=== PATIENT | female | born 1995 | race Caucasian/White ===

== ENCOUNTER 2018-04-02 12:41 | Outpatient (CLI) | payer MEDICAID ==
[2018-04-02 15:19] LABS: RUPTURE FETAL MEMBRANES NEGATIVE (NEGATIVE)
== END 2018-04-02 15:55 | disposition home or self-care (01) ==
LOC: OBT 12:41 → L-D 12:41 → OBT 15:55
DX: O26.893 Other specified pregnancy related conditions, third trimester (principal); N89.8 Other specified noninflammatory disorders of vagina; Z3A.36 36 weeks gestation of pregnancy
CPT/HCPCS: 76818; 84112

== ENCOUNTER 2018-04-17 14:44 | Inpatient (IN) | payer MEDICAID ==
[2018-04-17] MEDS: LACTATED RINGER'S 1,000 ML IV ×3 (15:26→19:57)
[2018-04-17] MEDS ORDERED: OXYTOCIN 30 UNITS/LR 500 ML IV (15:30)
[2018-04-17] MEDS ORDERED: CARBOPROST 250 MCG INJ IM (15:30)
[2018-04-17] MEDS ORDERED: METHYLERGONOVINE 0.2 MG INJ IM (15:30)
[2018-04-17] MEDS ORDERED: LIDOCAINE 1% (MPF) 30 ML INJ INJ (15:30)
[2018-04-17] MEDS ORDERED: BUTORPHANOL 2 MG INJ IV (15:30)
[2018-04-17] MEDS ORDERED: MISOPROSTOL 200 MCG TAB PR (15:30)
[2018-04-17] MEDS ORDERED: BUTORPHANOL 1 MG INJ IV (15:30)
[2018-04-17 15:35] LABS: ADD MAN DIFF? NO
[2018-04-17 15:38] LABS: WHITE BLOOD COUNT 14.3 10^3/ul (4.8-10.8)
[2018-04-17 15:38] LABS: BASOPHILS % 0.2 % (0.0-2.0); EOSINOPHILS % 0.1 % (0.0-7.0); HEMOGLOBIN 12.4 g/dl (12.0-16.0); LYMPHOCYTES % 6.8 % (15.0-51.0); MEAN CORPUSCULAR HEMOGLOBIN 31.2 pg (29.0-33.0); MEAN CORPUSCULAR HGB CONC 33.5 g/dl (32.0-37.0); MONOCYTE # 0.6 10^3/ul (0.3-0.9); MONOCYTES % 4.3 % (0.0-11.0); NEUTROPHIL # 12.6 10^3/ul (1.6-7.5); NEUTROPHILS % 87.8 % (39.0-77.0); PLATELET COUNT 233 10^3/UL (140-415); RED BLOOD COUNT 3.98 10^6/ul (4.20-5.40); RED CELL DISTRIBUTION WIDTH 13.5 % (11.5-14.5)
[2018-04-17 15:58] LABS: INR 0.85; PROTIME 11.7 Sec (11.9-14.9); PT RATIO 0.9
[2018-04-17] MEDS ORDERED: NALOXONE (0.4 MG/ML) INJ IV (17:00)
[2018-04-17] MEDS ORDERED: DIPHENHYDRAMINE 50 MG INJ IV (17:00)
[2018-04-17] MEDS ORDERED: ONDANSETRON 4 MG INJ IV (17:00)
[2018-04-17] MEDS ORDERED: FENTAnyl 2MCG/ML-ROPIV 0.2% 100 ML BAG EPI (17:00)
[2018-04-17 19:19] LABS: HEPATITIS B SURFACE ANTIGEN NEGATIVE (NEGATIVE)
[2018-04-17] MEDS: OXYTOCIN 30 UNITS/LR 500 ML IV ×2 (21:58→23:30)
[2018-04-18] MEDS ORDERED: NACL 0.9% 3 ML SYG IV (00:30)
[2018-04-18] MEDS ORDERED: HYDROCODONE/APAP (5/325) TAB PO (00:30)
[2018-04-18] MEDS ORDERED: ACETAMINOPHEN 325 MG TAB PO (00:30)
[2018-04-18] MEDS ORDERED: MISOPROSTOL 200 MCG TAB PR (00:30)
[2018-04-18] MEDS ORDERED: CARBOPROST 250 MCG INJ IM (00:30)
[2018-04-18] MEDS ORDERED: OXYTOCIN 30 UNITS/LR 500 ML IV (00:30)
[2018-04-18] MEDS ORDERED: ZOLPIDEM 5 MG TAB PO (00:30)
[2018-04-18] MEDS ORDERED: METHYLERGONOVINE 0.2 MG INJ IM (00:30)
[2018-04-18] MEDS ORDERED: WITCH HAZEL/GLYCERIN PAD PR (00:30)
[2018-04-18] MEDS ORDERED: DIPHENHYDRAMINE 25 MG CAP PO (00:30)
[2018-04-18] MEDS ORDERED: ONDANSETRON 4 MG INJ IV (00:30)
[2018-04-18] MEDS: SENNA/DOCUSATE NA (8.6MG/50MG) TAB PO ×3 (01:44→21:13)
[2018-04-18] MEDS: IBUPROFEN 600 MG TAB PO ×4 (01:45→17:57)
[2018-04-18] MEDS: OXYTOCIN 30 UNITS/LR 500 ML IV (03:40)
[2018-04-18 06:54] LABS: HEMATOCRIT 34.5 % (37.0-47.0); HEMOGLOBIN 11.7 g/dl (12.0-16.0)
[2018-04-18] MEDS: PRENATAL VITAMIN PO (09:06)
[2018-04-18 15:18] LABS: RAPID PLASMA REAGIN NONREACTIVE (NR)
[2018-04-19] MEDS: IBUPROFEN 600 MG TAB PO ×3 (00:15→11:11)
[2018-04-19] MEDS: PRENATAL VITAMIN PO (11:11)
[2018-04-19] MEDS: SENNA/DOCUSATE NA (8.6MG/50MG) TAB PO (11:11)
[2018-04-19] MEDS: MEASLES,MUMPS,RUBELLA VACCINE INJ SC* (16:27)
[2018-04-19] MEDS: DIPHTH/TET/ACEL PERTUSS (ADULT) 0.5 ML VIAL IM* (16:32)
[2018-04-19] MEDS: LANOLIN HPA 1 PKT TOP (16:33)
[2018-04-20] MEDS ORDERED: VARICELLA VACCINE LIVE/PF 1,350 UNIT/0.5 ML ML SC* (09:00)
[2018-04-20] MEDS ORDERED: DIPHTH/TET/ACEL PERTUSS (ADULT) 0.5 ML VIAL IM* (09:00)
== END 2018-04-19 17:20 | disposition home or self-care (01) | DRG 807 ==
LOC: OBT 14:44 → PP1 04-18 00:40 → L-D 14:44 → OBT 15:00 → L-D 15:00
PROVIDERS: Obstetrics & Gynecology
PROC: 10E0XZZ Delivery of Products of Conception, External Approach (ICD-10-PCS; principal; 2018-04-18)
PROC: 0HQ9XZZ Repair Perineum Skin, External Approach (ICD-10-PCS; 2018-04-18)
DX: O70.0 First degree perineal laceration during delivery (principal); Z37.0 Single live birth; Z3A.38 38 weeks gestation of pregnancy; Z23 Encounter for immunization
CPT/HCPCS: 62319; 85014; 85018; 85025; 85610; 85730; 86592; 86850; 86900; 86901; 87340; 90686; 90715; 99464

== ENCOUNTER 2018-04-27 18:24 | Inpatient (IN) | payer MEDICAID ==
[2018-04-27 19:19] LABS: ADD MAN DIFF? NO
[2018-04-27] MEDS: SODIUM CHLORIDE 0.9% 1L BAG IV* (19:20)
[2018-04-27] MEDS: ACETAMINOPHEN 325 MG TAB PO (19:21)
[2018-04-27] MEDS: PIPER-TAZO 3.375 GM IV (PMX) 100 ML IVPB (19:22)
[2018-04-27 19:36] LABS: WHITE BLOOD COUNT 13.5 10^3/ul (4.8-10.8)
[2018-04-27 19:36] LABS: BASOPHIL # 0.1 10^3/ul (0.0-0.1); BASOPHILS % 0.4 % (0.0-2.0); HEMATOCRIT 42.7 % (37.0-47.0); HEMOGLOBIN 14.1 g/dl (12.0-16.0); LYMPHOCYTES # 1.9 10^3/ul (0.8-2.9); LYMPHOCYTES % 14.2 % (15.0-51.0); MEAN CORPUSCULAR HEMOGLOBIN 30.8 pg (29.0-33.0); MEAN CORPUSCULAR VOLUME 93.2 fl (82.0-101.0); MEAN PLATELET VOLUME 9.5 fl (7.4-10.4); MONOCYTE # 0.6 10^3/ul (0.3-0.9); MONOCYTES % 4.8 % (0.0-11.0); NEUTROPHIL # 10.8 10^3/ul (1.6-7.5); NEUTROPHILS % 80.1 % (39.0-77.0); PLATELET COUNT 267 10^3/UL (140-415); RED BLOOD COUNT 4.58 10^6/ul (4.20-5.40); RED CELL DISTRIBUTION WIDTH 13.4 % (11.5-14.5)
[2018-04-27 19:39] LABS: ADD UMIC YES; UR ASCORBIC ACID NEGATIVE (NEGATIVE); UR BACTERIA FEW /HPF (NONE SEEN); UR BILIRUBIN (Dip) NEGATIVE (NEGATIVE); UR BLOOD (Dip) 2+ mg/dL (NEGATIVE); UR CLARITY SLIGHTLY CLOUDY (CLEAR); UR COLOR YELLOW (YELLOW); UR GLUCOSE (Dip) NEGATIVE (NEGATIVE); UR KETONES (Dip) 1+ mg/dL (NEGATIVE); UR LEUKOCYTE ESTERASE (Dip) 3+ Leu/ul (NEGATIVE); UR NITRITE (Dip) NEGATIVE (NEGATIVE); UR RBC 9 /HPF (0-5); UR SPECIFIC GRAVITY (Dip) 1.011 (1.003-1.030); UR SQUAMOUS EPITHELIAL CELL MODERATE /HPF (FEW); UR TOTAL PROTEIN (Dip) NEGATIVE (NEGATIVE); UR UROBILINOGEN (Dip) NEGATIVE (NEGATIVE); UR WBC 41 /HPF (0-5)
[2018-04-27 19:50] LABS: ALANINE AMINOTRANSFERASE 11 IU/L (13-69); ALBUMIN 4.3 g/dl (3.3-4.9); ALBUMIN/GLOBULIN RATIO 1.04; ALKALINE PHOSPHATASE 134 IU/L (42-121); ANION GAP 13 (5-13); ASPARTATE AMINO TRANSFERASE 35 IU/L (15-46); BILIRUBIN,INDIRECT 0.3 mg/dl (0-1.1); BILIRUBIN,TOTAL 0.3 mg/dl (0.2-1.3); BLOOD UREA NITROGEN 12 mg/dl (7-20); CALCIUM 8.3 mg/dl (8.4-10.2); CARBON DIOXIDE 20 mmol/L (21-31); CHLORIDE 101 mmol/L (97-110); CREATININE 0.84 mg/dl (0.44-1.00); Estimated GFR > 60 mL/min (>60); GLUCOSE 107 mg/dl (70-220); POTASSIUM 3.6 mmol/L (3.5-5.1); SODIUM 134 mmol/L (135-144); TOTAL PROTEIN 8.4 g/dl (6.1-8.1)
[2018-04-27 20:01] LABS: TROPONIN-I < 0.012 ng/ml (0.000-0.120)
[2018-04-27 20:05] LABS: INR 1.31; PROTIME 16.4 Sec (11.9-14.9); PT RATIO 1.3
[2018-04-27 20:06] LABS: PARTIAL THROMBOPLASTIN TIME 33.4 Sec (23.0-35.0)
[2018-04-27] MEDS: VANCOMYCIN 1 GM (PMX) 250 ML IVPB (20:38)
[2018-04-28] MEDS ORDERED: ONDANSETRON 4 MG INJ IV
[2018-04-28] MEDS: ACETAMINOPHEN 325 MG TAB PO ×4 (00:09→23:22)
[2018-04-28] MEDS ORDERED: NACL 0.9% 3 ML SYG IV (02:30)
[2018-04-28] MEDS: SOD CHLORIDE 0.9% 1,000 ML IV ×3 (02:36→17:09)
[2018-04-28] MEDS: PIPER-TAZO 3.375 GM IV (PMX) 100 ML IVPB ×3 (05:26→17:09)
[2018-04-28 06:22] LABS: HEMATOCRIT 39.5 % (37.0-47.0); HEMOGLOBIN 13.1 g/dl (12.0-16.0); MEAN CORPUSCULAR HGB CONC 33.2 g/dl (32.0-37.0); MEAN CORPUSCULAR VOLUME 93.4 fl (82.0-101.0); MEAN PLATELET VOLUME 9.6 fl (7.4-10.4); PLATELET COUNT 220 10^3/UL (140-415); RED BLOOD COUNT 4.23 10^6/ul (4.20-5.40); RED CELL DISTRIBUTION WIDTH 13.8 % (11.5-14.5)
[2018-04-28 06:22] LABS: WHITE BLOOD COUNT 13.7 10^3/ul (4.8-10.8)
[2018-04-28 06:27] LABS: ADD MAN DIFF? YES; POSITIVE DIFF @See below
[2018-04-28 07:01] LABS: ALANINE AMINOTRANSFERASE 22 IU/L (13-69); ALBUMIN 3.5 g/dl (3.3-4.9); ALKALINE PHOSPHATASE 119 IU/L (42-121); ANION GAP 10 (5-13); ASPARTATE AMINO TRANSFERASE 27 IU/L (15-46); BILIRUBIN,INDIRECT 0.2 mg/dl (0-1.1); BILIRUBIN,TOTAL 0.2 mg/dl (0.2-1.3); BLOOD UREA NITROGEN 9 mg/dl (7-20); CALCIUM 8.2 mg/dl (8.4-10.2); CARBON DIOXIDE 23 mmol/L (21-31); CHLORIDE 107 mmol/L (97-110); CREATININE 0.71 mg/dl (0.44-1.00); Estimated GFR > 60 mL/min (>60); GLUCOSE 127 mg/dl (70-220); POTASSIUM 3.8 mmol/L (3.5-5.1); SODIUM 140 mmol/L (135-144)
[2018-04-29] MEDS: PIPER-TAZO 3.375 GM IV (PMX) 100 ML IVPB ×4 (00:33→18:24)
[2018-04-29] MEDS: HYDROCODONE/APAP (5/325) TAB PO (02:13)
[2018-04-29 06:32] LABS: WHITE BLOOD COUNT 8.1 10^3/ul (4.8-10.8)
[2018-04-29 06:32] LABS: HEMATOCRIT 35.4 % (37.0-47.0); HEMOGLOBIN 11.7 g/dl (12.0-16.0); MEAN CORPUSCULAR HEMOGLOBIN 30.6 pg (29.0-33.0); MEAN CORPUSCULAR HGB CONC 33.1 g/dl (32.0-37.0); MEAN CORPUSCULAR VOLUME 92.7 fl (82.0-101.0); MEAN PLATELET VOLUME 9.8 fl (7.4-10.4); PLATELET COUNT 154 10^3/UL (140-415); RED BLOOD COUNT 3.82 10^6/ul (4.20-5.40); RED CELL DISTRIBUTION WIDTH 13.4 % (11.5-14.5)
[2018-04-29 06:36] LABS: POSITIVE DIFF @See below
[2018-04-29 06:37] LABS: ADD MAN DIFF? YES
[2018-04-29 06:49] LABS: ANION GAP 9 (5-13); BLOOD UREA NITROGEN 7 mg/dl (7-20); CALCIUM 8.1 mg/dl (8.4-10.2); CARBON DIOXIDE 20 mmol/L (21-31); CHLORIDE 110 mmol/L (97-110); CREATININE 0.65 mg/dl (0.44-1.00); Estimated GFR > 60 mL/min (>60); GLUCOSE 90 mg/dl (70-220); PHOSPHORUS 3.6 mg/dl (2.5-4.9); POTASSIUM 3.2 mmol/L (3.5-5.1); SODIUM 139 mmol/L (135-144)
[2018-04-29 08:08] LABS: BAND NEUTROPHILS #M 2.2 10^3/ul (0.0-0.6); BAND NEUTROPHILS % (M) 28 % (0-4); BASOPHILS % (M) 1 % (0-2); LYMPHOCYTES #M 0.8 10^3/ul (0.8-2.9); LYMPHOCYTES % (M) 11 % (15-51); MONOCYTES % (M) 1 % (0-11); PLATELET ESTIMATE NORMAL; REACTIVE LYMPHOCYTES #M 0.3 10^3/ul (0.0-0.0); REACTIVE LYMPHOCYTES% (M) 4 % (0-0); SEG NEUT #M 4.6 10^3/ul (1.6-7.5); SEGMENTED NEUTROPHILS (M) % 55 % (39-77); SMUDGE%M 5 % (0-0)
[2018-04-29] MEDS: METOCLOPRAMIDE 10 MG INJ IV (12:36)
[2018-04-29] MEDS: DOCUSATE SODIUM 100 MG CAP PO ×2 (12:36→22:46)
[2018-04-29] MEDS: SOD CHLORIDE 0.9% 1,000 ML IV ×2 (12:37→18:17)
[2018-04-29] MEDS: POTASSIUM CHLORIDE 100 ML IVPB ×2 (14:47→16:59)
[2018-04-30] MEDS: PIPER-TAZO 3.375 GM IV (PMX) 100 ML IVPB ×3 (00:32→11:46)
[2018-04-30] MEDS: SOD CHLORIDE 0.9% 1,000 ML IV ×3 (04:17→12:51)
[2018-04-30 05:51] LABS: ADD MAN DIFF? NO
[2018-04-30 05:52] LABS: WHITE BLOOD COUNT 4.2 10^3/ul (4.8-10.8)
[2018-04-30 05:52] LABS: HEMATOCRIT 37.7 % (37.0-47.0); HEMOGLOBIN 12.5 g/dl (12.0-16.0); MEAN CORPUSCULAR HEMOGLOBIN 30.8 pg (29.0-33.0); MEAN CORPUSCULAR HGB CONC 33.2 g/dl (32.0-37.0); MEAN CORPUSCULAR VOLUME 92.9 fl (82.0-101.0); MEAN PLATELET VOLUME 9.8 fl (7.4-10.4); PLATELET COUNT 192 10^3/UL (140-415); RED BLOOD COUNT 4.06 10^6/ul (4.20-5.40); RED CELL DISTRIBUTION WIDTH 13.8 % (11.5-14.5)
[2018-04-30 06:02] LABS: POSITIVE DIFF @See below
[2018-04-30 06:21] LABS: ANION GAP 8 (5-13); BLOOD UREA NITROGEN 7 mg/dl (7-20); CALCIUM 8.7 mg/dl (8.4-10.2); CARBON DIOXIDE 24 mmol/L (21-31); CHLORIDE 109 mmol/L (97-110); Estimated GFR > 60 mL/min (>60); GLUCOSE 88 mg/dl (70-220); POTASSIUM 3.5 mmol/L (3.5-5.1); SODIUM 141 mmol/L (135-144)
[2018-04-30 07:24] LABS: BAND NEUTROPHILS #M 0.6 10^3/ul (0.0-0.6); BAND NEUTROPHILS % (M) 15 % (0-4); BASOPHILS % (M) 1 % (0-2); EOSINOPHILS % (M) 1 % (0-7); LYMPHOCYTES #M 1.6 10^3/ul (0.8-2.9); LYMPHOCYTES % (M) 39 % (15-51); MONOCYTE #M 0.3 10^3/ul (0.3-0.9); MONOCYTES % (M) 9 % (0-11); PLATELET ESTIMATE NORMAL; REACTIVE LYMPHOCYTES #M 0.1 10^3/ul (0.0-0.0); REACTIVE LYMPHOCYTES% (M) 3 % (0-0); SEG NEUT #M 1.4 10^3/ul (1.6-7.5); SEGMENTED NEUTROPHILS (M) % 32 % (39-77); SMUDGE%M 11 % (0-0)
[2018-04-30] MEDS: DOCUSATE SODIUM 100 MG CAP PO (08:31)
== END 2018-04-30 16:55 | disposition home or self-care (01) | DRG 776 ==
LOC: PP2 23:52 → E/R 18:24 → PP2 04-28 14:44
DX: O85 Puerperal sepsis (principal); N39.0 Urinary tract infection, site not specified; O91.22 Nonpurulent mastitis associated with the puerperium; E87.6 Hypokalemia; B96.89 Other specified bacterial agents as the cause of diseases classified elsewhere
CPT/HCPCS: 36415; 71045; 76856; 80048; 80053; 81001; 83605; 83735; 84100; 84484; 85025; 85610; 85730; 87040; 87045; 87075; 87081; 87086; 87400; 96365; 96375; 99291-25; G0378

== ENCOUNTER 2018-09-25 18:33 | Emergency (ER) | payer MEDICAID | END 2018-09-25 19:48 | disposition home or self-care (01) | LOC: FTE 18:33 | DX: K64.9 Unspecified hemorrhoids (principal) | CPT/HCPCS: 81025; 99284 ==